=== PATIENT | female | born 1935 | race Caucasian/White ===

== ENCOUNTER 2017-05-29 14:16 | Emergency (ER) | payer OTHER, MEDICARE ==
[~2017-05-29] VITALS: Ht 160 cm; Wt 94.3 kg
[2017-05-29 15:12] LABS: BASOPHIL COUNT 0.1 K/uL (0-0.1); EOSINOPHIL (%) 2.2 % (0-5); EOSINOPHIL COUNT 0.1 K/uL (0-0.3); HEMATOCRIT 40.6 % (36.0-46.0); IMMATURE GRANULOCYTE (%) 0.5 % (0.0-0.7); INSTRUMENT ABS NEUTROPHIL CT 3.6 K/uL; LYMPHOCYTE COUNT 1.4 K/uL (1.0-2.8); MCH 30.2 PG (29.0-34.0); MCHC 33.7 G/DL (30.0-36.0); MCV 89.6 FL (83-99); MEAN PLAT.VOLUME 8.8 uM^3 (9.5-12.4); MONOCYTE (%) 11.9 % (3-12); MONOCYTE COUNT 0.7 K/uL (0-0.8); NEUTROPHIL (%) 61.5 % (45-76); NEUTROPHIL COUNT 3.6 K/uL (1.8-6.4); PLATELET COUNT 281 K/uL (156-360); RBC DIS.WIDTH-CV 12.7 % (11.8-14.6); RED BLOOD COUNT 4.53 M/uL (3.80-5.20); WHITE BLOOD COUNT 5.9 K/uL (4.1-10.2)
[2017-05-29 15:19] LABS: CHLORIDE 95 mEq/L (99-109); POTASSIUM 4.5 mEq/L (3.7-5.4); SODIUM 128 mEq/L (136-147)
[2017-05-29 15:20] LABS: PROTHROMBIN TIME 11.2 SEC (10.2-12.9)
[2017-05-29 15:21] LABS: GLUCOSE 129 mg/dL (70-99)
[2017-05-29 15:22] LABS: PTT 29.4 SEC (25-37)
[2017-05-29 15:23] LABS: ANION GAP 8 MEQ/L (2-14)
[2017-05-29 15:25] LABS: GFR ESTIMATE (CALCULATED) 56 mL/min/
[2017-05-29 15:26] LABS: UREA NITROGEN (BUN) 17 mg/dL (9-23)
[2017-05-29 17:51] VITALS: BP 178/84
== END 2017-05-29 17:52 | disposition home or self-care (01) ==
LOC: EME 14:16
DX: M79.89 Other specified soft tissue disorders (principal); E78.5 Hyperlipidemia, unspecified; I10 Essential (primary) hypertension; Z85.068 Personal history of other malignant neoplasm of small intestine; Z90.49 Acquired absence of other specified parts of digestive tract
CPT/HCPCS: 80048; 85025; 85610; 85730; 93971; 99281; 99283